=== PATIENT | female | born 1935 | race Caucasian/White ===

== ENCOUNTER → 2016-06-11 | Outpatient (CLI) | payer MEDICARE, BC | LOC: BFHH 11:36 | PROVIDERS: ATTEND Family Medicine | DX: M51.37 Other intervertebral disc degeneration, lumbosacral region (principal); M41.20 Other idiopathic scoliosis, site unspecified; D64.9 Anemia, unspecified; D51.0 Vitamin B12 deficiency anemia due to intrinsic factor deficiency; E78.5 Hyperlipidemia, unspecified ==

== ENCOUNTER → 2016-06-17 | Outpatient (CLI) | payer MEDICARE, BC ==
--- NOTE | 2016-06-17 11:11 | MRI ---
EXAM DESCRIPTION: MR LUMBAR SPINE WITHOUT IV CONTRAST CLINICAL HISTORY: 81 y/o F, INTERVERTEBRAL DISK DISPLACEMENT COMPARISON: None TECHNIQUE: Multi planar, multi sequence imaging of the lumbar spine was acquired without IV contrast. FINDINGS: Severe levoscoliosis of the lumbar spine. Vertebral body heights are unremarkable. Disc desiccation at all levels. Endplate edema noted at L3-4, L4-5 and L5-S1. The conus terminates at L1. It appears unremarkable. L1-L2: Circumferential disk osteophyte complex. Bilateral neural foramina are unremarkable. The AP diameter of the spinal canal is unremarkable. L2-L3: Circumferential disk osteophyte complex. Facet degeneration. The midline diameter of the spinal canal is widely patent measuring 1.4 cm. There is right neural foraminal narrowing and left neural foraminal narrowing without exiting nerve root contact. L3-4: Circumferential disk osteophyte complex, ligamentum flavum thickening and facet degeneration. The midline diameter of the spinal canal measures 1.2 cm. There is severe right and mild left neural foraminal narrowing. There is likely contact of the exiting right L3 nerve root. L4-5: Severe facet degeneration and ligamentum flavum thickening. There is severe bilateral lateral recess narrowing and contact of the bilateral descending L5 nerve roots. The midline diameter of the spinal canal is adequate at 1 cm. The right neural foramen is unremarkable. There is moderate left neural foraminal narrowing. Possible contact of the exiting left L4 nerve root. L5-S1: Severe left and moderate right facet degeneration. Asymmetric the left circumferential disk osteophyte complex. The right neural foramen is unremarkable. The spinal canal is widely patent measuring 1.6 cm. The left neural foramen is moderately narrowed. No definitive exiting nerve root contact. IMPRESSION: Today's exam demonstrates severe levoscoliosis as described above. Multilevel disc and facet disease is noted. There is no spinal canal narrowing at any level. There is multilevel neural foraminal narrowing with likely contact of the exiting right L3 nerve root, and exiting left L4 nerve root. Additionally, there is narrowing of bilateral lateral recesses at L4-5 with likely contact the bilateral descending L5 nerve roots. These findings could result in radiculopathies within these dermatomes, if the patient is symptomatic. Electronically signed by: Salas Figueroa MD 06/17/2016 11:09
== END ==
LOC: MRI 09:52
PROVIDERS: ATTEND Family Medicine
DX: M51.27 Other intervertebral disc displacement, lumbosacral region (principal); M41.9 Scoliosis, unspecified

== ENCOUNTER → 2016-08-12 | Outpatient (CLI) | payer MEDICARE, BC | END | disposition home or self-care (01) | LOC: YCFC.O 10:05 | PROVIDERS: ATTEND Anesthesiology Pain Medicine | DX: Z79.891 Long term (current) use of opiate analgesic (principal) ==

== ENCOUNTER → 2016-12-19 | Outpatient (CLI) | payer MEDICARE, BC | LOC: GMAJ 10:26 | PROVIDERS: ATTEND Family Medicine | DX: E53.8 Deficiency of other specified B group vitamins (principal); Z79.899 Other long term (current) drug therapy ==

== ENCOUNTER 2017-02-11 16:09 | Emergency (ER) | payer MEDICARE, BC ==
--- NOTE | 2017-02-11 17:05 | ED.PDOC ---
History of Present Illness - General Chief Complaint: Back Pain or Injury Stated Complaint: Fell from ground level; low back pain Time Seen by Provider: 02/11/17 16:59 Source: patient - History of Present Illness Initial Comments: Prisca Garces 82 y/o female stated that she fell on carpeted floor after trying to get up from her recliner on 02/11/2017 landed on her buttocks. Denies bowel or bladder dysfunction. Timing/Duration: other - 3 days ago Quality/Severity: burning Back Pain Location: lumbar spine, coccyx Back Pain Radiation: other - NONE Method of Injury/Prior Injury: fell Improving Factors: nothing Worsening Factors: movement Associated Symptoms: denies symptoms Allergies/Adverse Reactions: Allergies NO KNOWN ALLERGY Allergy (Verified 02/11/17 16:39) Review of Systems - Review of Systems Constitutional: States: no symptoms reported EENTM: States: no symptoms reported Respiratory: States: no symptoms reported Cardiology: States: no symptoms reported Gastrointestinal/Abdominal: States: no symptoms reported Genitourinary: States: no symptoms reported Musculoskeletal: States: back pain Past Medical History (General) - Patient Medical History Hx Other PMH: Yes - osteoporosis ,oa Surgical History: no surgical history - Activities of Daily Living Patient Lives Alone: No - daughter - Female History Patient is a Female of Child Bearing Age (10 -59 yrs old): No Family Medical History - Family History Mother Family History: No Known Grandparents Family History: Unknown Physical Exam - Physical Exam General Appearance: Alert, No apparent distress Eyes, Ears, Nose, Throat Exam: PERRL/EOMI, pharynx normal Neck Exam: non-tender, full range of motion, normal alignment, normal inspection Cardiovascular/Respiratory: regular rate, rhythm, no M/R/G, normal peripheral pulses, normal breath sounds Peripheral Pulses: radial,right: 1+, radial,left: 1+ Gastrointestinal/Abdominal: normal bowel sounds, non tender, soft, no organomegaly Back Exam: no CVA tenderness, other - tenderness sacrum/coccyx Extremity Exam: non-tender, no pedal edema, pelvis stable Neurologic: no motor/sensory deficits, alert, oriented x 3 Progress - Progress Progress: 02/11/17 17:43 Vital Signs - 8 hr 02/11/17 16:25 Temperature 97.6 F Pulse Rate [L 68 Arm] Respiratory 16 Rate Blood Pressure 123/60 [L Arm] O2 Sat by Pulse 90 L Oximetry - EKG/XRAY/CT XRAY: no fracture sacrum/coccyx Departure - Departure Clinical Impression: Fall Qualifiers: Encounter type: initial encounter Qualified Code(s): W19.XXXA - Unspecified fall, initial encounter Contusion of sacral region Qualifiers: Encounter type: initial encounter Qualified Code(s): S30.0XXA - Contusion of lower back and pelvis, initial encounter Time of Disposition: 17:44 Disposition: Discharge to Home or Self Care Condition: Fair Departure Forms: ED Discharge - Pt. Copy, Patient Portal Self Enrollment Instructions: DI for Low Back Pain, DI for Contusion Activity: ambulate only with walker Referrals: Jian Keller MD [Primary Care Provider] - 1-2 Weeks Additional Instructions: Continue with lidocaine patch as directed
--- NOTE | 2017-02-11 17:41 | RAD ---
EXAM DESCRIPTION: Sacrum Coccyx CLINICAL HISTORY: pain COMPARISON: Lumbar spine dated March TECHNIQUE: 3 views FINDINGS: Degenerative changes are observed in the lower lumbar spine. The sacrum is osteopenic. No fracture is detected. The distal coccyx is unremarkable. IMPRESSION: The sacrum and coccyx are osteopenic. No fracturing is detected. Electronically signed by: Kobi Barnhart MD 02/11/2017 5:40 PM CDT
[2017-02-11 18:14] VITALS: BP 117/66; TEMP 97.8; O2SAT 92
== END 2017-02-11 18:13 | disposition home or self-care (01) ==
LOC: ER 16:09
DX: S30.0XXA Contusion of lower back and pelvis, initial encounter (principal); M81.0 Age-related osteoporosis without current pathological fracture; W07.XXXA Fall from chair, initial encounter; Y92.9 Unspecified place or not applicable

== ENCOUNTER → 2017-04-14 | Outpatient (CLI) | payer MEDICARE, BC | END | disposition home or self-care (01) | LOC: BFHH 11:36 | PROVIDERS: ATTEND Family Medicine | DX: D51.0 Vitamin B12 deficiency anemia due to intrinsic factor deficiency (principal); E78.3 Hyperchylomicronemia; M06.9 Rheumatoid arthritis, unspecified ==

== ENCOUNTER → 2017-08-21 | Outpatient (CLI) | payer MEDICARE, BC | LOC: BFHH 09:17 | PROVIDERS: ATTEND Family Medicine | DX: D51.0 Vitamin B12 deficiency anemia due to intrinsic factor deficiency (principal); E78.00 Pure hypercholesterolemia, unspecified; K21.9 Gastro-esophageal reflux disease without esophagitis; R13.10 Dysphagia, unspecified; M81.0 Age-related osteoporosis without current pathological fracture; M06.9 Rheumatoid arthritis, unspecified; F32.9 Major depressive disorder, single episode, unspecified ==

== ENCOUNTER → 2018-02-10 | Outpatient (CLI) | payer MEDICARE, BC ==
--- NOTE | 2018-02-10 18:01 | RAD ---
EXAM DESCRIPTION: UGI: Rad-Fluoroscopy. CLINICAL HISTORY: GERD COMPARISON: None TECHNIQUE: The patient swallowed barium pill with water. The patient swallowed heavy density barium under fluoroscopic visualization. The images were obtained with the patient standing and horizontal. Patient drank medium density barium through a straw in the semi-prone position. 133 fluoroscopic cine loop images. 14 static fluoroscopic images. Total fluoroscopy time was 3.2 minutes. DAP: Less than 12.9 Gy-cm2.. FINDINGS: Patient swallowed the barium pill and there was slow transit in the upper esophagus mid esophagus and pill stopped moving within a large hiatal hernia, superimposed over an air pocket in the upper hernia. Patient swallowed the oral contrast taking a minimum of 2 swallows to clear the oral cavity. Premature spillage into the vallecula more on the left than the right. No definite aspiration. Primary peristaltic wave noted to the level of the aortic arch with mostly secondary and tertiary contractions distal to the aortic arch. Mass effect on the esophagus from the arch. 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 The gastroesophageal junction is posterior to the body of the stomach and can only be seen in the left decubitus drinking images. The fundus body and most of the antrum are above the hernia with the remainder of the antrum and pylorus below the hernia. Narrowing of the antrum at the hernia site. Normal anatomic orientation of the duodenal bulb and sweep. Small diverticulum in the third portion of the duodenum. IMPRESSION: 1. Dysfunctional peristalsis in the esophagus with secondary and tertiary contractions distally. Minimal reflux at the gastroesophageal junction. No definite aspiration in the pharyngeal phase of the swallow. 2. Large Paraesophageal hernia, with organoaxial volvulus involving the fundus body in the proximal antrum. The distal antrum and pylorus are inferior to the hernia with narrowing of the antrum where it passes through the hernia. There is increased risk for ischemia of the stomach due to the hernia. 3. No gastroesophageal obstruction. Small diverticulum in the third segment of the duodenum. Electronically signed by: Rubén Amado MD 02/10/2018 6:00 PM CDT
== END ==
LOC: RAD 10:00
PROVIDERS: ATTEND Family Medicine
DX: K21.9 Gastro-esophageal reflux disease without esophagitis (principal); K44.9 Diaphragmatic hernia without obstruction or gangrene

== ENCOUNTER → 2018-08-05 | Outpatient (CLI) | payer MEDICARE, BC | LOC: BFHH 10:10 | PROVIDERS: ATTEND Family Medicine | DX: D51.0 Vitamin B12 deficiency anemia due to intrinsic factor deficiency (principal); I10 Essential (primary) hypertension; E78.5 Hyperlipidemia, unspecified ==

== ENCOUNTER → 2019-02-08 | Outpatient (CLI) | payer MEDICARE, BC | LOC: BFHH 09:10 | PROVIDERS: ATTEND Family Medicine | DX: D51.0 Vitamin B12 deficiency anemia due to intrinsic factor deficiency (principal); E78.5 Hyperlipidemia, unspecified; M17.12 Unilateral primary osteoarthritis, left knee; M41.20 Other idiopathic scoliosis, site unspecified; M81.0 Age-related osteoporosis without current pathological fracture; M06.9 Rheumatoid arthritis, unspecified ==

== ENCOUNTER → 2019-06-29 | Outpatient (CLI) | payer MEDICARE, BC ==
--- NOTE | 2019-06-30 11:24 | RAD ---
EXAM DESCRIPTION: Lumbar Spine 3 Views CLINICAL HISTORY: LOW BACK PAIN COMPARISON: None Available. TECHNIQUE: Three views lumbar spine FINDINGS: Three views lumbar spine demonstrate severe levoscoliosis centered at approximately the L1-2 level with significant lateral translation of L3 relative to L4 and more normal alignment at the remainder of the levels. Multilevel severe degenerative disc disease and/or effusion of the disc spaces as well as posterior element facet arthropathy is noted. Essentially normal alignment is evident on the lateral view with marked disc space narrowing at L5-S1 and at L3-4. I am most suspicious there is at least fusion or partial fusion at the L4-5 L2-3 and L1-2 levels. Advanced vacuum phenomenon and disc degenerative disease at T11-12 and T12-L1 also noted. IMPRESSION: 1. Markedly abnormal spine with severe levoscoliosis centered at the L1-2 level with angulation estimated at approximately 60 degrees. 2. Suspected fusion at multiple disc levels including L1-L2 three and L4-5 with severe disc degenerative narrowing and vacuum phenomena at L5-S1, L3-4 with left translation of L3 on L4 as well as the lower thoracic and thoracolumbar spine levels Electronically signed by: Corby Orellana MD 06/30/2019 11:23 AM [facility]
== END ==
LOC: RAD 13:16
PROVIDERS: ATTEND Physician Assistant
DX: Q67.5 Congenital deformity of spine (principal); M43.26 Fusion of spine, lumbar region; M51.37 Other intervertebral disc degeneration, lumbosacral region

== ENCOUNTER → 2019-09-13 | Outpatient (CLI) | payer MEDICARE, BC | LOC: BFHH 09:48 | PROVIDERS: ATTEND Family Medicine | DX: D51.0 Vitamin B12 deficiency anemia due to intrinsic factor deficiency (principal); F01.50 Vascular dementia, unspecified severity, without behavioral disturbance, psychotic disturbance, mood disturbance, and anxiety; Z79.899 Other long term (current) drug therapy ==

== ENCOUNTER → 2020-01-07 | Outpatient (CLI) | payer MEDICARE, BC | LOC: BFHH 09:42 | PROVIDERS: ATTEND Family Medicine | DX: D51.0 Vitamin B12 deficiency anemia due to intrinsic factor deficiency (principal); E78.2 Mixed hyperlipidemia; M17.12 Unilateral primary osteoarthritis, left knee; M81.0 Age-related osteoporosis without current pathological fracture; Z79.82 Long term (current) use of aspirin; M06.9 Rheumatoid arthritis, unspecified; R13.10 Dysphagia, unspecified; F32.9 Major depressive disorder, single episode, unspecified; F03.90 Unspecified dementia, unspecified severity, without behavioral disturbance, psychotic disturbance, mood disturbance, and anxiety ==

== ENCOUNTER 2020-03-21 14:24 | Emergency (ER) | payer MEDICARE, BC ==
[2020-03-21] MEDS ORDERED: SODIUM CHLORIDE 0.9% (FLUSH) 10 ML SYG IV PRN (14:44)
[2020-03-21 14:52] VITALS: BP 134/69; O2SAT 93
--- NOTE | 2020-03-21 15:15 | ED.PDOC ---
History of Present Illness - General Chief Complaint: Respiratory Problem Stated Complaint: sob Time Seen by Provider: 03/21/20 14:44 Source: patient, RN notes reviewed, Vital Signs reviewed, family - daughter Exam Limitations: no limitations - History of Present Illness Initial Comments: Patient is an 85-year-old white female who presents from home with complaints of shortness of breath. Patient's caregiver noted to have a fever on . The caregiver was tested for Covid on Friday and came back positive. Patient went to the drive-through Covid testing at the clinic and was tested today. The nurse to test her said that she could not hear any lung sounds and her oxygen saturation was 80%. Patient denies any symptoms and wants to be discharged home. Timing/Duration: 1-3 hours Severity: mild Improving Factors: nothing Worsening Factors: nothing Associated Symptoms: denies symptoms Allergies/Adverse Reactions: Allergies NO KNOWN ALLERGY Allergy (Verified 02/11/17 16:39) Review of Systems - Review of Systems Constitutional: States: no symptoms reported, see HPI. Denies: chills, fever, malaise, weakness EENTM: States: no symptoms reported. Denies: eye pain, blurred vision, double vision Respiratory: States: see HPI, short of breath Cardiology: States: no symptoms reported. Denies: chest pain, palpitations, syncope Gastrointestinal/Abdominal: States: no symptoms reported. Denies: abdominal pain, nausea, vomiting Genitourinary: States: no symptoms reported. Denies: dysuria, frequency Musculoskeletal: States: no symptoms reported. Denies: back pain, joint pain, neck pain Skin: States: no symptoms reported. Denies: change in color, rash Neurological: States: no symptoms reported. Denies: tingling, tremors, weakness Endocrine: States: no symptoms reported. Denies: increased hunger, increased thirst, increased urine Hematologic/Lymphatic: States: no symptoms reported. Denies: blood clots, easy bleeding All other Systems: Reviewed and Negative Past Medical History (General) - Patient Medical History Hx Stroke: Yes - TIA Hx Asthma: No Hx of COPD: No Hx Congestive Heart Failure: No Hx Diabetes: No Hx Gastroesophageal Reflux: Yes Surgical History: no surgical history - Vaccination History Hx Tetanus, Diphtheria Vaccination: No Hx Influenza Vaccination: No Hx Pneumococcal Vaccination: No - Social History Hx Tobacco Use: No Hx Chewing Tobacco Use: No Hx Alcohol Use: No Hx Substance Use: No Hx Substance Use Treatment: No Hx Depression: No Hx Physical Abuse: No Hx Emotional Abuse: No Hx Suspected Abuse: No - Female History Patient : No Family Medical History - Family History Grandparents Family History: Unknown Mother Family History: No Known Physical Exam - Physical Exam General Appearance: Alert, Comfortable, Unkempt, Well Developed, Well Groomed, Well Hydrated, Well Nourished Eye Exam: bilateral normal Ears, Nose, Throat: hearing grossly normal, normal ENT inspection, normal pharynx Neck: non-tender, full range of motion, supple Respiratory: chest non-tender, lungs clear, normal breath sounds, no respiratory distress, no accessory muscle use Cardiovascular/Chest: normal peripheral pulses, regular rate, rhythm, no edema, no gallop, no JVD Peripheral Pulses: radial,right: 2+, radial,left: 2+ Gastrointestinal/Abdominal: normal bowel sounds, non tender, soft Back Exam: normal inspection, no CVA tenderness, no vertebral tenderness Extremity: normal range of motion, non-tender, normal inspection Neurologic: window clerk II-XII nml as tested, no motor/sensory deficits, alert, normal mood/affect, oriented x 3 Skin Exam: normal color, warm/dry Lymphatic: no adenopathy Progress - Progress Progress: Differential diagnosis: Pneumonia, Covid, CHF, acute DE among others. 03/21/20 15:32 Patient denies any symptomatology and refuses any work-up other than the EKG and chest x-ray. While she was here the [facility] respiratory panel came back at the clinic and we were informed that it was a negative test result. We have discussed this with the patient and her daughter. Patient wants to leave at this point in time and refuses any further evaluation or work-up. I have given patient warning symptoms to return for. They voiced understanding and agreement. Patient's oxygen saturation is 95% on room air here in the department. Reginald Harris M.D. #[id number] 03/21/20 15:38 - Results/Orders Results/Orders: EKG performed 21 March 2020 at 1438 hrs.: Sinus rhythm with first-degree AV block at 60 bpm, normal axis deviation, no ST or T wave changes or acute ischemia, otherwise normal EKG Procedure: XR CHEST 1 VIEW Exam Date: 03/21/2020 Ordering Provider: Reginald Harris Clinical Indication: sob Comparison: None Findings: Cardiomediastinal silhouette is within normal limits. No focal lung consolidation. No pleural effusion. No pneumothorax. No acute osseous abnormality. Large hiatal hernia. Impression: 1. No acute abnormality in the chest. 2. Large hiatal hernia. Electronically signed by: Elvin Diallo MD 03/21/2020 3:23 PM CDT Vital Signs 03/21/20 03/21/20 03/21/20 14:46 14:53 15:10 Temperature 97.2 F L Pulse Rate [ 71 pulse ox] Respiratory 18 18 Rate Blood Pressure 134/69 [Left Arm] O2 Sat by Pulse 93 L 93 L Oximetry Departure - Departure Clinical Impression: Dyspnea Qualifiers: Dyspnea type: unspecified Qualified Code(s): R06.00 - Dyspnea, unspecified Time of Disposition: 15:38 Disposition: Discharge to Home or Self Care Condition: Good Departure Forms: ED Discharge - Pt. Copy, Patient Portal Self Enrollment Instructions: Shortness of Breath (Dyspnea) (DC) Activity: increase activity as tolerated Referrals: Jian Keller MD [Primary Care Provider] - 1-5 Days
--- NOTE | 2020-03-21 15:25 | RAD ---
Procedure: XR CHEST 1 VIEW Exam Date: 03/21/2020 Ordering Provider: Reginald Harris Clinical Indication: sob Comparison: None Findings: Cardiomediastinal silhouette is within normal limits. No focal lung consolidation. No pleural effusion. No pneumothorax. No acute osseous abnormality. Large hiatal hernia. Impression: 1. No acute abnormality in the chest. 2. Large hiatal hernia. Electronically signed by: Elvin Diallo MD 03/21/2020 3:23 PM CDT
[2020-03-21 15:46] VITALS: TEMP 97.7
== END 2020-03-21 15:45 | disposition home or self-care (01) ==
LOC: ER 14:24
DX: R06.00 Dyspnea, unspecified (principal); I44.0 Atrioventricular block, first degree; K21.9 Gastro-esophageal reflux disease without esophagitis; Z86.73 Personal history of transient ischemic attack (TIA), and cerebral infarction without residual deficits

== ENCOUNTER → 2020-06-09 | Outpatient (CLI) | payer MEDICARE, BC | LOC: BFHH 12:36 | PROVIDERS: ATTEND Family Medicine | DX: D51.0 Vitamin B12 deficiency anemia due to intrinsic factor deficiency (principal); E78.5 Hyperlipidemia, unspecified; M51.27 Other intervertebral disc displacement, lumbosacral region; M06.9 Rheumatoid arthritis, unspecified ==

== ENCOUNTER 2020-07-10 05:30 | Day surgery (SDC) | payer MEDICARE, BC ==
[2020-07-10] MEDS ORDERED: DEXAMETHASONE INJ 10 MG/ML VIAL ONE (07:15)
[2020-07-10] MEDS ORDERED: BETAMETHASONE ACETATE/BETAMETH 6 MG/ML VIAL IM ONE ×2 (07:15→10:45)
[2020-07-10] MEDS ORDERED: LIDOCAINE 1% 10 ML VIAL INJ ONE ×2 (07:15→10:44)
[2020-07-10] MEDS ORDERED: BUPIVACAINE 0.5% 30 ML VIAL INJ ONE ×2 (07:16→10:45)
== END 2020-07-10 11:05 | disposition home or self-care (01) ==
LOC: AMB 05:30
PROVIDERS: ATTEND Family Medicine Sports Medicine
DX: M46.1 Sacroiliitis, not elsewhere classified (principal); M54.5 Low back pain; E78.5 Hyperlipidemia, unspecified; K21.9 Gastro-esophageal reflux disease without esophagitis; F03.90 Unspecified dementia, unspecified severity, without behavioral disturbance, psychotic disturbance, mood disturbance, and anxiety; M81.0 Age-related osteoporosis without current pathological fracture; Z79.899 Other long term (current) drug therapy
CPT/HCPCS: 76000; G0260